=== PATIENT | female | born 1965 | race Caucasian/White ===

== ENCOUNTER 2019-01-18 13:34 | Emergency (ER) | payer BC, OTHER | END 2019-01-18 14:18 | disposition left against medical advice (07) | LOC: DL.ED 13:34 | DX: Z53.21 Procedure and treatment not carried out due to patient leaving prior to being seen by health care provider (principal) | CPT/HCPCS: 99283 ==

== ENCOUNTER 2022-06-07 03:10 | Emergency (ER) | payer OTHER ==
[2022-06-07] MEDS ORDERED: Sodium Chloride 0.9% 1,000 ML IV ONE (03:43)
[2022-06-07] MEDS ORDERED: Sodium Chloride 0.9% 10 ML Syringe FLUSH PRN (03:43)
[2022-06-07 05:05] LABS: ANION GAP 14.5 mEq/L (7-13)
[2022-06-07 05:20] LABS: AMPHETAMINES,URINE NEGATIVE (NEGATIVE); BARBITURATES,URINE NEGATIVE (NEGATIVE); BENZODIAZEPINE,URINE NEGATIVE (NEGATIVE); MDMA (ECSTASY), URINE NEGATIVE (NEGATIVE); METHADONE,URINE NEGATIVE (NEGATIVE); METHAMPHETAMINES,URINE NEGATIVE (NEGATIVE); OPIATES,URINE NEGATIVE (NEGATIVE); OXYCODONE,URINE NEGATIVE (NEGATIVE); PHENCYCLIDINE,URINE NEGATIVE (NEGATIVE); TCA,URINE NEGATIVE (NEGATIVE)
[2022-06-07 05:36] VITALS: BP 107/63; PULSE 89
== END 2022-06-07 06:13 | disposition home or self-care (01) ==
LOC: DL.ED 03:10
DX: F10.920 Alcohol use, unspecified with intoxication, uncomplicated (principal); Y90.6 Blood alcohol level of 120-199 mg/100 ml; Z88.1 Allergy status to other antibiotic agents; Z88.0 Allergy status to penicillin; Z88.2 Allergy status to sulfonamides
CPT/HCPCS: 36415; 80053; 80305; 80307; 81003; 83735; 85025; 96360; 99284; J7030